=== PATIENT | male | born 1990 | race Caucasian/White ===

== ENCOUNTER 2022-08-26 14:42 | Emergency (ER) | payer MEDICAID ==
[~2022-08-26] VITALS: Ht 167.6 cm; Wt 89.0 kg
[2022-08-26 15:01] VITALS: BP 122/58
[2022-08-26] MEDS ORDERED: IBUPROFEN 600MG TABLET PO ONE (19:00)
== END 2022-08-26 19:43 | disposition left against medical advice (07) ==
LOC: ER 14:42
DX: R10.33 Periumbilical pain (principal); R10.32 Left lower quadrant pain; F15.10 Other stimulant abuse, uncomplicated
CPT/HCPCS: 99281

== ENCOUNTER 2023-01-08 01:09 | Emergency (ER) | payer SELFPAY ==
[~2023-01-08] VITALS: Ht 170.2 cm; Wt 94.9 kg
[2023-01-08 01:26] VITALS: BP 126/79
[2023-01-08] MEDS ORDERED: [UNRECOGNIZED DRUG - CODE] TP (03:23)
== END 2023-01-08 03:43 | disposition home or self-care (01) ==
LOC: ER 01:09
DX: L85.3 Xerosis cutis (principal); F15.10 Other stimulant abuse, uncomplicated
CPT/HCPCS: 99282; Z7610

== ENCOUNTER 2023-07-13 23:32 | Emergency (ER) | payer SELFPAY ==
[~2023-07-13] VITALS: Ht 162.6 cm; Wt 77.0 kg
[~2023-07-13 23:32] MED LIST: [UNRECOGNIZED DRUG - CODE] TP
[2023-07-13 23:36] VITALS: O2SAT 100
[2023-07-14 02:23] LABS: BASOPHILS % 0.4 % (0.0-2.0); HEMATOCRIT. 45.6 % (42.0-52.0); HEMOGLOBIN. 15.4 g/dL (14.0-18.0); LYMPHOCYTES % 10.5 % (20.0-50.0); MEAN CORPUSCULAR HEMOGLOBIN 28.8 pg (28.0-32.0); MEAN CORPUSCULAR HGB CONC 33.8 g/dL (31.0-37.0); MEAN PLATELET VOLUME 9.4 fl (7.4-10.4); MONOCYTES % 4.8 % (2.0-8.0); NEUTROPHILS % 84.3 % (40.0-76.0); PLATELET 294 x1000/uL (130-400); RED BLOOD CELL COUNT 5.37 mill/uL (4.7-6.1); RED CELL DISTRIBUTION WIDTH 13.7 % (11.6-14.6); WHITE BLOOD COUNT 15.3 x1000/uL (4.5-11.0)
[2023-07-14 02:33] LABS: CLARITY URINE CLOUDY (CLEAR); COLOR URINE DARK YELLOW (YELLOW); GLUCOSE URINE NEGATIVE (NEGATIVE); KETONES URINE 1+ (NEGATIVE); LEUKOCYTE ESTERASE URINE NEGATIVE (NEGATIVE); NITRITE URINE NEGATIVE (NEGATIVE); OCCULT BLOOD URINE 1+ (NEGATIVE); PH URINE 5.5 (4.5-8.0); PROTEIN URINE 2+ (NEGATIVE); SPECIFIC GRAVITY URINE 1.027 (1.005-1.030)
[2023-07-14 02:36] LABS: BACTERIA URINE NONE SEEN; SQUAMOUS EPITHELIAL CELL URINE NONE SEEN /lpf (RARE/1+); WBC URINE NONE SEEN /hpf (0-2); YEAST URINE NONE SEEN
[2023-07-14 02:41] LABS: CHLORIDE 105 mEq/L (98-107); INDEX HEMOLYSI 1 (1-3); INDEX ICTERIC 1 (1-4); INDEX LIPEMIC 1 (1-3); POTASSIUM 4.2 mEq/L (3.5-5.1); SODIUM 136 mEq/L (136-145)
[2023-07-14 02:49] LABS: ALANINE AMINOTRANSFERASE 37 IU/L (13-61); ALBUMIN 4.6 g/dL (3.4-5.0); ASPARTATE AMINOTRANSFERASE 29 IU/L (15-37); CALCIUM 9.4 mg/dL (8.5-10.1); CARBON DIOXIDE 26 mEq/L (21-32); CREATININE 1.1 mg/dL (0.6-1.3); GLUCOSE 150 mg/dL (70-105); PROTEIN TOTAL 9.7 g/dL (6.0-8.3); UREA NITROGEN BLOOD 17 mg/dL (7-21)
[2023-07-14 05:32] VITALS: BP 145/103; PULSE 110; RESP 14; TEMP 98.4
[2023-07-14] MEDS ORDERED: IBUP-2029 MT (05:32)
[2023-07-14 05:39] LABS: AMORPHOUS SEDIMENT URINE 1+ /lpf
== END 2023-07-14 05:43 | disposition home or self-care (01) ==
LOC: ER 23:32
DX: R10.11 Right upper quadrant pain (principal); K76.0 Fatty (change of) liver, not elsewhere classified
CPT/HCPCS: 36415; 76705; 80053; 81003; 85025; 99284

== ENCOUNTER 2023-07-15 09:30 | Emergency (ER) | payer SELFPAY ==
[~2023-07-15] VITALS: Ht 172.7 cm; Wt 83.0 kg
[~2023-07-15 09:30] MED LIST changes: +IBUP-2029 MT
[2023-07-15 09:45] VITALS: BP 119/67; PULSE 105; RESP 20; TEMP 98.4; O2SAT 100
== END 2023-07-15 11:20 | disposition home or self-care (01) ==
LOC: ER 10:35
DX: R10.9 Unspecified abdominal pain (principal)
CPT/HCPCS: 99281